=== PATIENT | male | born 1945 | race Caucasian/White ===

== ENCOUNTER 2016-06-02 10:09 | Day surgery (SDC) | payer OTHER ==
[~2016-06-02 10:09] MED LIST: ASPIRIN81 M1 PO; AZATHIOPRINE50 MG PO; COZAAR50 MG PO; FLONASE AL50 MCG/ACT IN; FUROSEMIDE40 MG PO; LOVASTATIN40 MG PO; METFORMIN HCL500 MG PO; NEXIUM40 M1 PO; O2; SINGULAIR10 MG PO; TAMSULOSIN HCL0.4 MG PO; VENLAFAXINE HCL25 MG PO
--- NOTE | 2016-06-02 10:52 | NUR ---
PRE OP INSTRUCTIONS GIVEN AND SAFETY ISSUES DISCUSSED PT CONRIFMED PROCEDURE PT SIGNED CONSENT ACCU CHECK 142 PT VISITING WITH DAUGHTER
--- NOTE | 2016-06-02 12:18 | Provider's Discharge Care Plan ---
Problem, Goal, Plan Problem List 1. S/P COLONOSCOPY Goals: Screening Instructions: Follow up as directed, Take meds as directed, high fiber diet
--- NOTE | 2016-06-02 12:18 | Provider's Discharge Care Plan ---
Problem, Goal, Plan Problem List 1. S/P COLONOSCOPY Goals: Screening Instructions: Follow up as directed, Take meds as directed, high fiber diet
--- NOTE | 2016-06-02 12:19 | NUR ---
PT IS AWAKE AND ALERT. PT DENIES PAIN OR NAUSEA. PT MOVES HIS LEGS, WIGGLE HIS TOES AND TURN HIMSELF ON EACH SIDE. VSS. PT STATES HE IS WARM AND COMFORTABLE. ANESTESIA PROVIDER PRESENT.
--- NOTE | 2016-06-02 12:42 | OPERATIVE REPORT ---
DATE OF SURGERY: 06/02/2016 SURGEON: Henok Lopez III, MD ASSOCIATE STORE DIRECTOR: None PREOPERATIVE DIAGNOSIS: 1. Screening colonoscopy, history of bright red blood per rectum POSTOPERATIVE DIAGNOSIS: 1. Normal colonoscopy, grade 1 internal hemorrhoids and external hemorrhoid at 10 o'clock position PROCEDURE PERFORMED: Colonoscopy and anoscopy ANESTHESIA: Spinal. SURGICAL TECHNIQUE: The patient was brought to the operating room and placed in the left lateral decubitus position after having undergone spinal anesthesia. Spinal anesthesia was used because his parachute packer stated that he could not take any type of IV sedation or general anesthesia. A digital rectal examination revealed no masses. The patient was noted to have an external hemorrhoid that was soft to palpation at approximately 10 o'clock position. This was then followed by the passage of a fiberoptic video flexible Olympus colonoscope which, with some difficulty because of the prep and a tortuous colon, negotiated the right colon with visualization of the cecum. On withdrawing the scope, the aforementioned findings noted. The scope was retroflexed and a good visualization of the rectal vault obtained. Grade 1 internal hemorrhoids were identified. The scope was completely withdrawn. The patient tolerated that portion of the procedure well. An anoscope was then inserted into the patient's rectum. A knotted Kerlix sponge was placed in the rectum. The anoscope was withdrawn and the sponge withdrawn, simulating a bowel movement. There was no prolapsing of the hemorrhoids. There was minor streaking of blood along the sponge itself. The patient tolerated the procedure well and was transferred to the recovery room in stable condition. There were no intraoperative or anesthetic complications.
--- NOTE | 2016-06-02 12:42 | OPERATIVE REPORT ---
DATE OF SURGERY: 06/02/2016 SURGEON: Henok Lopez III, MD BRAND ANALYST: None PREOPERATIVE DIAGNOSIS: 1. Screening colonoscopy, history of bright red blood per rectum POSTOPERATIVE DIAGNOSIS: 1. Normal colonoscopy, grade 1 internal hemorrhoids and external hemorrhoid at 10 o'clock position PROCEDURE PERFORMED: Colonoscopy and anoscopy ANESTHESIA: Spinal. SURGICAL TECHNIQUE: The patient was brought to the operating room and placed in the left lateral decubitus position after having undergone spinal anesthesia. Spinal anesthesia was used because his energy scheduler stated that he could not take any type of IV sedation or general anesthesia. A digital rectal examination revealed no masses. The patient was noted to have an external hemorrhoid that was soft to palpation at approximately 10 o'clock position. This was then followed by the passage of a fiberoptic video flexible Olympus colonoscope which, with some difficulty because of the prep and a tortuous colon, negotiated the right colon with visualization of the cecum. On withdrawing the scope, the aforementioned findings noted. The scope was retroflexed and a good visualization of the rectal vault obtained. Grade 1 internal hemorrhoids were identified. The scope was completely withdrawn. The patient tolerated that portion of the procedure well. An anoscope was then inserted into the patient's rectum. A knotted Kerlix sponge was placed in the rectum. The anoscope was withdrawn and the sponge withdrawn, simulating a bowel movement. There was no prolapsing of the hemorrhoids. There was minor streaking of blood along the sponge itself. The patient tolerated the procedure well and was transferred to the recovery room in stable condition. There were no intraoperative or anesthetic complications.
--- NOTE | 2016-06-02 12:43 | NUR ---
PT RETURNED FROM PACU PASSING FLATUS STATED WAS HUNGRY PT IS MOVING FEET AND LEGS HAS FEELING ALL THE WAY UP THE LEGS
--- NOTE | 2016-06-02 13:44 | NUR ---
PT INSISTING ON GOING HOME PT UP TO BR ABLE TO WALK WITHOUT DIFFICULTY REVIEWED DISCHARGE INSTRUCTIONS VERBAL AND WRITTEN PT AND DAUGHTER EXPRESSED UNDERSTANDING PT DISCHARGED PER WC ACCOMPANIED BY DAUGHTER
--- NOTE | 2016-06-08 14:25 | OPERATIVE REPORT ---
DATE OF SURGERY: 06/02/2016 SURGEON: Henok Lopez III, MD PREOPERATIVE DIAGNOSIS: 1. Bright red blood per rectum POSTOPERATIVE DIAGNOSES: 1. Normal colonoscopy PROCEDURE PERFORMED: 1. Colonoscopy ANESTHESIA: TIVA. INDICATIONS: The patient is a 71-year-old male whose last colonoscopy was over 10 years ago. The patient has noticed bright red blood on the toilet paper, and has always attributed this to hemorrhoids. The patient occasionally has rectal discomfort with bowel movements. SURGICAL FINDINGS: The patient had a very tortuous colon, but the cecum, ascending, transverse, descending colon, sigmoid colon, and rectal vault appeared grossly normal. He had grade 1 internal hemorrhoids. SURGICAL TECHNIQUE: The patient was brought to the operating room and placed in the left lateral decubitus position, where he was administered TIVA and monitored closely by anesthesia. After proper anesthesia had taken effect, a digital rectal examination revealed no masses or stenosis. This was followed by the passage of a fiberoptic video flexible Olympus colonoscope which, with considerable difficulty, negotiated to the cecum. The cecum was identified by anatomical landmarks and anterior abdominal wall ballottement. On withdrawing the scope, the aforementioned findings noted. The scope was then retroflexed, good view of the rectal vault obtained. No pathology identified. The scope was completely withdrawn. The patient tolerated the procedure well and was transferred to the recovery room in stable condition. There were no intraoperative or anesthetic complications.
== END 2016-06-02 13:49 | disposition home or self-care (01) ==
LOC: OR SRH 10:09 → SCU SRH 10:15
PROVIDERS: Specialist
PROC: 0DJD8ZZ Inspection of Lower Intestinal Tract, Via Natural or Artificial Opening Endoscopic (ICD-10-PCS; principal; 2016-06-02 12:30)
DX: K62.5 Hemorrhage of anus and rectum (principal); E11.9 Type 2 diabetes mellitus without complications; Z79.84 Long term (current) use of oral hypoglycemic drugs; I10 Essential (primary) hypertension; J84.10 Pulmonary fibrosis, unspecified
CPT/HCPCS: 29229; 29240; 50004; 60001; 83426; 83526